=== PATIENT | male | born 1995 | race Hispanic/Latino ===

== ENCOUNTER 2022-11-21 21:59 | Emergency (ER) | payer OTHER ==
[~2022-11-21] VITALS: Ht 175.3 cm; Wt 107.5 kg
[2022-11-21 23:53] VITALS: PULSE 92; RESP 16
[2022-11-22] MEDS ORDERED: IBUPROFEN 600 MG TABLET PO ONE (00:30)
[2022-11-22 02:02] VITALS: BP 132/74
== END 2022-11-22 02:04 | disposition home or self-care (01) ==
LOC: EDH 21:59
DX: S09.8XXA Other specified injuries of head, initial encounter (principal); S50.812A Abrasion of left forearm, initial encounter; Y08.89XA Assault by other specified means, initial encounter; Y93.89 Activity, other specified; Y92.89 Other specified places as the place of occurrence of the external cause; Y99.8 Other external cause status
CPT/HCPCS: 99282